=== PATIENT | male | born 1990 | race African-American/Black ===

== ENCOUNTER 2018-09-15 12:36 | Emergency (ER) | payer SELFPAY ==
[~2018-09-15] VITALS: Ht 193 cm; Wt 86.2 kg
[2018-09-15 12:51] VITALS: BP 142/83
--- NOTE | 2018-09-15 14:45 | NUR ---
For discharge Patient discharged to home in stable condition. Written and verbal after care instructions given. Patient verbalizes understanding of instruction.
== END 2018-09-15 14:45 | disposition home or self-care (01) ==
LOC: ER 12:38
DX: S62.334A Displaced fracture of neck of fourth metacarpal bone, right hand, initial encounter for closed fracture (principal); F10.10 Alcohol abuse, uncomplicated; F12.10 Cannabis abuse, uncomplicated; Y90.9 Presence of alcohol in blood, level not specified; Z60.2 Problems related to living alone; Y04.8XXA Assault by other bodily force, initial encounter; Y93.89 Activity, other specified; Y92.89 Other specified places as the place of occurrence of the external cause; Y99.8 Other external cause status
CPT/HCPCS: 73130-TC

== ENCOUNTER 2019-08-05 10:47 | Emergency (ER) | payer MEDICAID ==
[~2019-08-05] VITALS: Ht 190.5 cm; Wt 93.9 kg
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
--- NOTE | 2019-08-05 11:37 | NUR ---
XRAY AT BEDSIDE
--- NOTE | 2019-08-05 12:12 | NUR ---
Patient discharged to home in stable condition. Written and verbal after care instructions given. Patient verbalizes understanding of instruction. Pt ambulatory with a steady gait
[2019-08-05 12:14] VITALS: BP 138/85
== END 2019-08-05 12:14 | disposition home or self-care (01) ==
LOC: ER 10:54
DX: S33.9XXA Sprain of unspecified parts of lumbar spine and pelvis, initial encounter (principal); Z60.2 Problems related to living alone; V49.49XA Driver injured in collision with other motor vehicles in traffic accident, initial encounter; Y93.89 Activity, other specified; Y92.488 Other paved roadways as the place of occurrence of the external cause; Y99.8 Other external cause status
CPT/HCPCS: 72100-TC

== ENCOUNTER 2020-12-08 11:17 | Emergency (ER) | payer MEDICAID ==
[~2020-12-08] VITALS: Ht 193 cm; Wt 90.7 kg
[2020-12-08 11:24] VITALS: BP 136/77
--- NOTE | 2020-12-08 11:42 | NUR ---
DIRECTOR OF CLINICAL EDUCATION AT BEDSIDE
[2020-12-08] MEDS ORDERED: IBUPROFEN 600 MG TABLET PO ONE (13:00)
[2020-12-08] MEDS ORDERED: IBUPROFEN 600 MG TABLET ONE (13:03)
[2020-12-08] MEDS ORDERED: IBUP-1955 PO (13:07)
[2020-12-08] MEDS ORDERED: CYCL10TA9 PO (13:07)
--- NOTE | 2020-12-08 13:12 | NUR ---
Patient discharged to home in stable condition. Written and verbal after care instructions given. Patient verbalizes understanding of instruction.
== END 2020-12-08 13:12 | disposition home or self-care (01) ==
LOC: ER 11:28
DX: S23.3XXA Sprain of ligaments of thoracic spine, initial encounter (principal); Z60.2 Problems related to living alone; V32.5XXA Driver of three-wheeled motor vehicle injured in collision with two- or three-wheeled motor vehicle in traffic accident, initial encounter; Y93.89 Activity, other specified; Y92.413 State road as the place of occurrence of the external cause; Y99.8 Other external cause status
CPT/HCPCS: 72074-TC

== ENCOUNTER 2023-04-17 18:04 | Emergency (ER) | payer MEDICAID ==
[~2023-04-17] VITALS: Ht 193 cm; Wt 93.0 kg
[~2023-04-17 18:04] MED LIST: CYCL10TA9 PO; IBUP-1955 PO
[2023-04-17 19:30] LABS: BASOPHILS # (AUTO) 0.1 K/uL (0.0-0.2); BASOPHILS % (AUTO) 1.2 % (0.0-2.0); EOSINOPHILS # (AUTO) 0.1 K/uL (0.0-0.7); EOSINOPHILS % (AUTO) 1.8 % (0.0-6.0); HEMATOCRIT 45 % (39-51); HEMOGLOBIN 15.3 g/dL (13.5-17.5); LYMPHOCYTES # (AUTO) 2.1 K/uL (0.8-4.8); LYMPHOCYTES % (AUTO) 36.2 % (20.0-44.0); MEAN CORPUSCULAR HEMOGLOBIN 30 PG (26.0-33.0); MEAN CORPUSCULAR HGB CONC 34 g/dl (31.0-36.0); MEAN CORPUSCULAR VOLUME 90 fL (80-96); MONOCYTES # (AUTO) 0.6 K/uL (0.1-1.30); MONOCYTES % (AUTO) 9.9 % (2.0-12.0); NEUTROPHILS % (AUTO) 50.9 % (43.0-81.0); PLATELET COUNT (AUTO) 205 K/uL (150-450); RED BLOOD CELL COUNT(AUTO) 5.02 MIL/uL (4.5-6.0); RED CELL DISTRIBUTION WIDTH 13.2 % (11.5-15.0); WHITE BLOOD COUNT (AUTO) 5.8 K/uL (4.3-11.0)
[2023-04-17 19:46] LABS: ALBUMIN 3.7 g/dL (3.4-5.0); BILIRUBIN,DIRECT 0.1 mg/dL (0.0-0.2); BILIRUBIN,TOTAL 0.3 mg/dL (0.2-1.0); CALCIUM, SERUM 8.8 mg/dL (8.5-10.1); POTASSIUM 3.6 mmol/L (3.5-5.1); TOTAL PROTEIN, SERUM 7.3 g/dL (6.4-8.2)
[2023-04-17 20:22] LABS: APPEARANCE,URINE CLEAR (CLEAR); BILIRUBIN,URINE NEGATIVE (NEGATIVE); BLOOD, URINE NEGATIVE Ery/uL (NEGATIVE); COLOR,URINE YELLOW (YELLOW); KETONES,URINE NEGATIVE (NEGATIVE); LEUKOCYTE ESTERASE ,URINE NEGATIVE (NEGATIVE); NITRITE, URINE NEGATIVE (NEGATIVE); PH,URINE 6.5 (5.0-8.0); PROTEIN,URINE NEGATIVE (NEGATIVE); UGLUCOSE NEGATIVE (NEGATIVE)
[2023-04-17] MEDS ORDERED: HYDR-4303 PO (20:37)
[2023-04-17] MEDS ORDERED: IBUP-1955 PO (20:37)
[2023-04-17] MEDS ORDERED: HYDROCODONE/APAP 5/325MG TABLET PO ONE (21:00)
[2023-04-17 21:16] VITALS: BP 139/94; TEMP 98.5; O2SAT 99
== END 2023-04-17 21:18 | disposition home or self-care (01) ==
LOC: ER 18:11
DX: K40.90 Unilateral inguinal hernia, without obstruction or gangrene, not specified as recurrent (principal); N50.82 Scrotal pain; Z60.2 Problems related to living alone
CPT/HCPCS: 99284; 74176; 76870; 85025; 80048; 83690; 80076; 81003; 36415; A6407